=== PATIENT | female | born 1980 | race Native Hawaiian/Other Pacific Islander ===

== ENCOUNTER 2021-05-18 11:08 | Emergency (ER) | payer OTHER ==
[~2021-05-18] VITALS: Ht 165.1 cm; Wt 124.7 kg
[2021-05-18 11:13] VITALS: TEMP 97
[2021-05-18] MEDS ORDERED: AMOX875T8 PO (11:56)
[2021-05-18 12:06] VITALS: BP 137/68
== END 2021-05-18 12:04 | disposition home or self-care (01) ==
LOC: ED 11:08
DX: S61.244A Puncture wound with foreign body of right ring finger without damage to nail, initial encounter (principal); W45.8XXA Other foreign body or object entering through skin, initial encounter; Y92.89 Other specified places as the place of occurrence of the external cause
CPT/HCPCS: 99281